=== PATIENT | male | born 1945 | race Caucasian/White ===

== ENCOUNTER 2017-02-26 06:04 | Inpatient (IN) | payer MEDICARE, OTHER ==
--- NOTE | 2017-02-21 08:43 | MH ---
cc: Danyell ORDAZ M.D. DATE OF ADMISSION: 02/26/2017 PREOPERATIVE DIAGNOSIS Osteoarthritic degeneration right hip now being admitted for right total hip arthroplasty. 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 PAST MEDICAL HISTORY Other past history: 1. He has a history of heart disease. 2. Essential primary hypertension. MEDICATIONS 1. Currently he is on warfarin which stopped 5 days before surgery. 2. He also takes aspirin 81 mg a day. 3. B complex vitamins. 4. Calcium acetate. 5. Flomax. 6. Losartan. 7. Metoprolol tartrate. PAST SURGICAL HISTORY Previous surgeries include: 1. A left total hip arthroplasty last year. 2. Cholecystectomy. 3. Knee replacement in the past. REVIEW OF SYSTEMS Noncontributory. FAMILY HISTORY Noncontributory. SOCIAL HISTORY He does drink alcohol and does smoke. ALLERGIES NO KNOWN ALLERGIES. PHYSICAL EXAMINATION GENERAL: We find a 71-year-old male well-developed, well-nourished, alert and oriented times three complaining of pain in his right hip. VITAL SIGNS: Blood pressure 132/74, pulse 78 and regular, respirations 16, temperature 97.9, pulse oximetry 98% on room air. HEENT: Eyes PERRLA, EOMI. Ears, nose, mouth clear. NECK: Supple. LUNGS: Clear. HEART: Regular rate. ABDOMEN: Soft. Positive bowel sounds, nontender. EXTREMITIES: Reveal his right hip to be tender with crepitance on range of motion. He is neurovascularly intact to his toes. IMPRESSION At this time is severe painful osteoarthritic degeneration right hip. PLAN The plan is admission for a right total hip arthroplasty today. 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 He is off his Coumadin and will need to have a stat Prothrombin time checked prior to surgery upon admission. He understands the procedure well and the risks involved. He was given a prescription for postoperative pain and anticoagulation control in the office. He understands to use the Hibiclens scrub and Bactroban preoperatively and plans on going home with home health care after surgical stay in the hospital. J. MD KAREN Raygoza/KK /3:18 PM /8:25 AM
[~2017-02-26] VITALS: Ht 177.8 cm; Wt 111.3 kg
[~2017-02-26 06:04] MED LIST: CALCTAB80 PO; CHOL10008 PO; IRON1CAP4 PO; LOSA25TA PO; METO25TA3 PO; MULT-65 PO; TAMS5CAP PO; VITA100021 SL; WARF-21 PO
[2017-02-26] MEDS ORDERED: LACTATED RINGER'S 1000 ML IV PRN (07:15)
[2017-02-26] MEDS ORDERED: METOPROLOL TARTRATE 25 MG TAB PO PRN (07:15)
[2017-02-26] MEDS ORDERED: CHLORHEXIDINE GLUCONATE 4% SOLN 120 ML BTL TOPICAL SCH (07:15)
[2017-02-26] MEDS ORDERED: ceFAZolin 2 GM PREMIX 50 ML IV SCH (07:15)
[2017-02-26] MEDS ORDERED: POVIDONE IODINE 5% (ANTISEPSIS KIT) 4 APPLICATIONS EACH NARE PRN (07:15)
[2017-02-26] MEDS ORDERED: CHLORHEXIDINE GLUCONATE 2 % 1 PACK (2 CLOTHS) TOPICAL PRN (07:15)
[2017-02-26] MEDS ORDERED: SODIUM CHLORID 0.9% 500 ML IV PRN (07:15)
[2017-02-26] MEDS ORDERED: VANCOMYCIN 1000 MG/NS 250 ML (for <70 kg) IV SCH ×2 (07:15)
[2017-02-26] MEDS ORDERED: ceFAZolin INJ 1,000 MG VIAL ONE (07:34)
[2017-02-26 08:13] LABS: BLOOD, URINE SMALL (NEG); GLUCOSE,URINE NEG (NEG); KETONE, URINE TRACE mg/dL (NEG); MUCUS URINE FEW /lpf (OCC); NITRITE,URINE NEG (NEG); PH, URINE 5.5 (5.0-8.5); SQUAMOUS EPITHELIAL CELL URINE 2 /hpf (0-5); URINE COLOR YELLOW (YELLW/STRAW); URINE LEUKOCYTE ESTERASE MOD (NEG)
[2017-02-26 08:15] LABS: INTERNATIONAL NORMALIZED RATIO 1.2 RATIO; PROTHROMBIN TIME - PATIENT 12.4 SEC (9.8-11.6)
[2017-02-26 08:19] LABS: BILIRUBIN, URINE NEG (NEG)
--- NOTE | 2017-02-26 08:25 | HHI.FF ---
Face to Face Verification Diagnosis: (1) Status post total replacement of right hip Physical Therapy Gait training Hip: Total hip, Protocol: Right, Posterior hip precautions, Abduction pillow while in bed, Progress to weight bearing Canvas Knee Splint: When in bed & 2 pillows btw thighs Nursing RN: 3 days/week x 2 weeks I have seen patient Garland Rosario on 02/26/17. My clinical findings support the need for the requested home health care services because: Limited ability to care for self High risk of falls I certify that my clinical findings support that this patient is homebound because: Unsteady gait/balance Danyell Funk MD Feb 26, 2017 08:25
[2017-02-26] MEDS ORDERED: ADJUSTABLE COMM1 MIS (08:26)
[2017-02-26] MEDS ORDERED: WALKER WHEELS/F1 MIS (08:26)
[2017-02-26] MEDS ORDERED: SODIUM CHLORIDE 0.9% IV SCH ×2 (08:30→11:30)
[2017-02-26] MEDS ORDERED: Post-op Orders (for Pharmacy) XX ONE (08:30)
[2017-02-26] MEDS ORDERED: BISACODYL 10 MG SUPP RECTAL PRN (08:30)
[2017-02-26] MEDS ORDERED: TRANEXAMIC ACID IV SCH ×2 (08:30→11:30)
[2017-02-26] MEDS ORDERED: MISCELLANEOUS NURSING INFORMATION XX PRN (08:30)
[2017-02-26] MEDS ORDERED: EXPAREL PERI-ARTICULAR INJECTION (TOTAL VOL. 120 ML) P-ARTICULR SCH ×2 (08:30)
[2017-02-26] MEDS ORDERED: NALOXONE HCL 0.4 MG/ML AMP IV PUSH PRN (08:30)
[2017-02-26] MEDS ORDERED: MAGNESIUM HYDROXIDE SUSP 30 ML CUP PO PRN (08:30)
[2017-02-26] MEDS ORDERED: TRANEXAMIC ACID INJ 0 MG in SODIUM CHLORIDE 0.9% INJ 100 ML IV SCH (08:30)
[2017-02-26] MEDS ORDERED: NON-FORMULARY DRUG (Multiple Vitamin (Multi-Vitamin Daily) 1 TAB) PO SCH (09:00)
[2017-02-26] MEDS ORDERED: APIXABAN 2.5 MG TABLET PO SCH (09:00)
[2017-02-26] MEDS ORDERED: ONDANSETRON HCL 4 MG/2 ML VIAL IVP PRN (09:45)
[2017-02-26] MEDS ORDERED: ACETAMINOPHEN 325 MG TAB PO PRN (09:45)
[2017-02-26] MEDS ORDERED: ACETAMINOPHEN/HYDROcodone 325 MG/7.5 MG TAB PO PRN (09:45)
[2017-02-26] MEDS: CYANOCOBALAMIN 1,000 MCG TAB PO SCH (10:00)
[2017-02-26] MEDS: CHOLECALCIFEROL (VIT D3) 1000 UNIT TAB PO SCH (10:00)
[2017-02-26] MEDS ORDERED: DO NOT ADM ANY ANTICOAGULANT DRUGS PRN (11:30)
[2017-02-26] MEDS ORDERED: *morphine SULFATE 8 MG/ML PERIprocedure ONLY ONE (11:55)
--- NOTE | 2017-02-26 11:58 | HHI.PR ---
Immediate Post Op Note Procedure Date: Feb 26, 2017 Pre Op Diagnosis: Degenerative Joint Disease Right Hip Post Op Diagnosis: Same Surgeon: Danyell Funk MD Tinner Automatic(s): CANDIDO Barbour Procedure: Right Total Hip Arthroplasty; Posterior Approach Findings: Degenerative Joint Disease Right Hip Complications: None Estimated blood loss: 1000cc Anesthesia: General Drains: None IVF (2000cc ) Tourniquet time (min at mmHg) N/A Patient to: PACU Patient Condition: Good Implant/Devices: SEE IMPLANT LOG (if applicable) (1.) Aesculap 54mm Acetabular Cup. 2.) Aesculap 54mm/ 36mm Insert . 3.) Aesculap #17 Stem. 4.) Aesculap 36mm Ceramic Head. ) Date/Time of Procedure: SEE SURGICAL CARE RECORD Garland Coombs Feb 26, 2017 11:58
[2017-02-26] MEDS: LACTATED RINGER'S 1000 ML INJ 1,000 ML IV SCH ×2 (12:00→21:33)
[2017-02-26] MEDS ORDERED: ePHEDrine/NS 25 MG/5 ML SYRINGE IV ONE (12:00)
[2017-02-26] MEDS ORDERED: PROPOFOL 200 MG/20 ML AMP IV ONE (12:00)
[2017-02-26] MEDS ORDERED: LIDOCAINE HCL 1% PF 5 ML SYRINGE OTHER ONE (12:00)
--- NOTE | 2017-02-26 12:18 | RADRPT ---
EXAM DATE/TIME: 02/26/2017 11:50 [place] COMPARISON: No previous studies available for comparison. INDICATIONS : Post-op right hip. MEDICAL HISTORY : None. SURGICAL HISTORY : None. ENCOUNTER: Initial ACUITY: 1 day PAIN SCORE: 8/10 LOCATION: Right Hip. FINDINGS: View of the right hip was obtained. Postop right total hip replacement. Air in soft tissues. Normal a lignment on single view. CONCLUSION: 1. Postop right hip replacement with normal alignment on AP view. Jason Lux MD on February 26, 2017 at 12:15 Board Certified Radiologist. This report was verified electronically.
--- NOTE | 2017-02-26 12:22 | PD.CONS ---
[facility] By [facility] surgery Reason for Consult Medical management Primary Care Physician Unknown Diagnoses: History of Present Illness 71-year-old man with a history of hypertension, CAD, right severe OA of the Hip would despite medical management including physical therapy,NSAIDs and corticosteroid injection continued to have severe right hip pain affecting daily living of Activity including ambulation, was taken to the operating room today and underwent right total hip arthroplasty. Patient was seen postoperatively in PACU. He Has no complaint of chest pain or shortness of breath. Review of Systems Except as stated in HPI: all other systems reviewed are Neg Past Family Social History Allergies: Coded Allergies: No Known Allergies (Unverified , 02/26/17) Past Medical History Right hip osteoarthritis Hypertension Atrial fibrillation BPH CAD Past Surgical History Right total hip arthroplasty 02/26/17 A left total hip arthroplasty last year. Cholecystectomy. Knee replacement in the past. Reported Medications 1. Currently he is on warfarin which stopped 5 days before surgery. 2. He also takes aspirin 81 mg a day. 3. B complex vitamins. 4. Calcium acetate. 5. Flomax. 6. Losartan. 7. Metoprolol tartrate. Family History Noncontributory Social History History of tobacco and alcohol use Physical Exam Vital Signs Vital Signs Date Time Temp Pulse Resp B/P (MAP) Pulse Ox O2 Delivery O2 Flow Rate FiO2 02/26/17 07:57 97.5 68 20 116/71 (86) 97 Physical Exam GENERAL: This is a well-nourished, well-developed patient, in no apparent distress. SKIN: No rashes, ecchymoses or lesions. Cool and dry. HEAD: Atraumatic. Normocephalic. No temporal or scalp tenderness. EYES: Pupils equal round and reactive. Extraocular motions intact. No scleral icterus. No injection or drainage. ENT: Nose without bleeding, purulent drainage or septal hematoma. Throat without erythema, tonsillar hypertrophy or exudate. Uvula midline. Airway patent. NECK: Trachea midline. No JVD or lymphadenopathy. Supple, nontender, no meningeal signs. CARDIOVASCULAR: Irregular Regular rate and rhythm without murmurs, gallops, or rubs. RESPIRATORY: Clear to auscultation. Breath sounds equal bilaterally. No wheezes , rales, or rhonchi. GASTROINTESTINAL: Abdomen soft, non-tender, nondistended. No hepato-splenomegaly , or palpable masses. No guarding. MUSCULOSKELETAL: Extremities without clubbing, cyanosis, or edema. Right hip repair-neurovascular intact NEUROLOGICAL: Awake and alert. Cranial nerves II through XII intact. Motor and sensory grossly within normal limits. Five out of 5 muscle strength in all muscle groups. Normal speech. Laboratory Laboratory Tests Test 02/26/17 07:30 02/26/17 07:50 Urine Color YELLOW Urine Turbidity CLEAR Urine pH 5.5 Urine Specific Vader 1.028 Urine Protein TRACE Urine Glucose (UA) NEG Urine Ketones TRACE Urine Occult Blood SMALL Urine Nitrite NEG Urine Bilirubin NEG Urine Urobilinogen 4.0 Urine Leukocyte Esterase MOD Urine RBC 1 Urine WBC 5 Urine Squamous Epithelial Cells 2 Urine Mucus FEW Microscopic Urinalysis Comment CULT NOT INDICATED Prothrombin Time 12.4 Prothromb Time International Ratio 1.2 Activated Partial Thromboplast Time 28.3 Imaging Last Impressions Hip X-Ray 02/26/17820 Signed Impressions: Service Date/Time: Sunday, February 26, 2017 11:50 - CONCLUSION: 1. Postop right hip replacement with normal alignment on AP view. Jason Lux MD Assessment and Plan Assessment and Plan 71-year-old man with Right hip severe osteoarthritis s/p Right Total Hip Arthroplasty 02/26/17 Management per orthopedic surgery Continue current postop care PT consult to treat and eval Ivy for DVT prophylaxis History of atrial fibrillation Continue with Lopressor Coumadin on hold Currently on Eliquis Hypertension Continue Cozaar 25 mg daily, Lopressor 25 mg twice a day BPH Continue with Flomax Alcohol abuse Start CIWA protocol DVT prophylaxis: Eliquis Thank you for this consultation Code Status Full code Discussed Condition With Patient, Janie CARVER PACU nurse Eduard Aguirre MD Feb 26, 2017 12:22
[2017-02-26 12:31] LABS: HEMATOCRIT 39.6 % (39.0-51.0); HEMOGLOBIN 13.5 GM/DL (13.0-17.0)
[2017-02-26] MEDS ORDERED: LORazepam 2 MG/ML VIAL IV PUSH PRN ×4 (13:00)
[2017-02-26] MEDS ORDERED: LORazepam 2 MG TAB PO PRN (13:00)
[2017-02-26] MEDS ORDERED: RESP: ALBUTEROL 2.5 MG/IPRATROPIUM 0.5 MG NEB (PRN) NEB (13:00)
[2017-02-26] MEDS ORDERED: LORazepam 1 MG TAB PO PRN (13:00)
[2017-02-26] MEDS ORDERED: FLUMAZENIL 0.5 MG/5 ML VIAL IV PUSH PRN (13:00)
--- NOTE | 2017-02-26 14:12 | EKG ---
Date Performed: 02/26/2017 Time Performed: 07:00:17 PTAGE: 71 years EKG: Sinus rhythm WITH SINUS ARRHYTHMIA WITH FIRST DEGREE AV BLOCK BORDERLINE LEFT AXIS DEVIATION RIGHT BUNDLE BRANCH BLOCK ABNORMAL ECG NO PREVIOUS TRACING DOCTOR: Rowdy Negron Interpretating Date/Time 02/26/2017 14:11:27
[2017-02-26 19:07] VITALS: BP 140/72; PULSE 83; RESP 18; TEMP 96.7; O2SAT 99
[2017-02-26] MEDS ORDERED: TEMAZEPAM 15 MG CAP PO PRN (21:00)
[2017-02-26] MEDS: TAMSULOSIN HCL 0.4 MG CAP PO SCH (21:32)
[2017-02-26] MEDS: METOPROLOL TARTRATE 25 MG TAB PO SCH (21:32)
--- NOTE | 2017-02-26 22:46 | RC ---
cc: JAIR DIXON MD,Danyell REYES M.D. DATE OF SERVICE: 02/26/[address] Adrien Funk DIAGNOSIS Severe osteoarthritis and osteoarthritic degeneration of the right hip. CHIEF COMPLAINT Status post right total hip arthroplasty. REASON FOR VISIT The patient is being evaluated for adjuvant postoperative radiotherapy for HO prevention. HISTORY OF PRESENT ILLNESS A 71-year-old white male with the diagnosis of osteoarthritic degeneration of the right hip. The patient has had severe painful osteoarthritic degeneration and underwent right total hip arthroplasty today. Due to this Dr. Funk recommended for the patient to consider adjuvant postoperative radiation therapy for HO prevention. The patient has been referred to me and consult has been requested for discussion of adjuvant radiation therapy. PAST MEDICAL HISTORY As above. 1. Heart disease. 2. Hypertension. 3. Left total hip replacement. 4. Cholecystectomy. 5. Knee replacement in the past. 6. Angina. 7. History of cardiac stents. 8. History of enlarged prostate. MEDICATIONS 1. Colace. 2. Cozaar. 3. Theragran. 4. Lopressor. 5. Flomax. 6. Restoril. 7. Romazicon. 8. Ativan. 9. [place]. 10. Zofran. 11. Narcan. ALLERGIES NO KNOWN DRUG ALLERGIES. FAMILY HISTORY No carcinoma in the family. SOCIAL HISTORY The patient admits to smoking. He denies ETOH intake. REVIEW OF SYSTEMS Constitutional: The patient denies any decrease or loss of appetite. ALLERGIES: None known. Eyes: Wears glasses. ENT: Denies any difficulty in swallowing. Neck: Unremarkable. Integumentary unremarkable. Cardiovascular: Denies any chest pain, clinical signs of [place]. Respiratory: Unremarkable. Denies hemoptysis or cough. Gastrointestinal: Unremarkable. Genitourinary: Unremarkable. Musculoskeletal: Right hip discomfort following surgery. Neurological: Unremarkable. Denies any clinical signs of stroke. Psychiatric: Unremarkable. Hematologic: Unremarkable. Dermatologic: Unremarkable. PHYSICAL EXAMINATION Vital signs: Pulse 82, respiratory rate 16, blood pressure 130/63, pulse ox 100% on room air. Lungs: Clear to auscultation with upper respiratory effort. Heart: Irregularly irregular, no murmurs. Neck: Palpation of neck and bilateral supraclavicular are free. Abdomen: Palpation of abdominal cavity, there is no hepatosplenomegaly. No pain elicited. No lymph nodes detected. Extremities: No lower extremity edema detected. There is surgical site on the right hip. There is no infection or discharge detected. No bleeding. Neurological: Cognitive functions preserved, motor function preserved. Skin: No rash. No other positive findings. RADIOLOGY Hip AP only right pelvis on 02/26/2017. Postop right hip replacement, normal alignment on AP view. This was independently reviewed by me. ASSESSMENT A 71 year-old white male with diagnosis of severe osteoarthritic disease of the right hip, status post total hip replacement. The patient is being evaluated for radiation therapy for prevention of heterotopic bone. PLAN I had an extensive discussion with the patient in regards to his condition. I discussed the merits of radiation therapy and alternatives including indomethacin use. I discussed the purpose of the radiation therapy which will be HO prevention. I discussed the side effects, complications of radiotherapy to include but not limited to weakness, fatigue, blood counts, necrosis of the skin, wound dehiscence, failure of the implant, diarrhea, nausea and vomiting, decrease in sperm counts, swelling of the treated area, erythema of the skin. After a thorough discussion the patient wanted to move forward with treatment. Our plans are to simulate and treat within 72 hours of the surgery most likely on . The patient advised if I could be of any further assistance to please let me know otherwise we will proceed as above. All his questions were answered. Dr. Funk, thank you very much for placing this consult and allowing me to participate in the care of your patient. Should you have any further concerns, please do not hesitate to contact me. Jair Dixon MD Radiation Oncologist LYNDA ROJAS/BLANCA /5:25 PM /10:15 PM [place]
[2017-02-26] MEDS: APIXABAN 2.5 MG TABLET PO SCH (22:56)
[2017-02-26 23:13] VITALS: BP 122/69; PULSE 92; RESP 18; TEMP 99.6; O2SAT 96
[2017-02-27] VITALS (8 sets, daily range): BP systolic 78–133; BP diastolic 38–65; PULSE 79–88; RESP 17–19; TEMP 97.7–99.4; O2SAT 92–99
[2017-02-27 04:39] LABS: HEMOGLOBIN 11.9 GM/DL (13.0-17.0)
[2017-02-27 04:54] LABS: BICARBONATE 28.4 MEQ/L (21.0-32.0); CREATININE 0.77 MG/DL (0.60-1.30)
--- NOTE | 2017-02-27 07:57 | PD.ORT.PN ---
Subjective Subjective Remarks Pt painful at present. Objective Vitals Vital Signs Date Time Temp Pulse Resp B/P (MAP) Pulse Ox O2 Delivery O2 Flow Rate FiO2 02/27/17 03:12 98.3 86 18 88/48 (61) 98 02/26/17 23:13 99.6 92 18 122/69 (86) 96 02/26/17 19:07 96.7 83 18 140/72 (94) 99 02/26/17 18:15 97.9 82 18 168/70 (102) 100 Room Air 02/26/17 17:00 76 18 100 Room Air 02/26/17 16:00 71 18 148/70 (96) 100 Room Air 02/26/17 15:00 77 18 132/67 (88) 100 Room Air 02/26/17 14:00 82 16 130/63 (85) 100 Room Air 02/26/17 13:50 72 16 147/71 (96) 100 Nasal Cannula 2 02/26/17 13:30 75 16 150/67 (94) 100 Nasal Cannula 2 02/26/17 13:00 72 16 132/66 (88) 100 Nasal Cannula 2 02/26/17 12:45 69 16 136/65 (88) 100 Nasal Cannula 2 02/26/17 12:30 69 16 157/72 (100) 100 Nasal Cannula 2 02/26/17 12:15 77 17 155/77 (103) 100 Nasal Cannula 2 02/26/17 12:00 78 17 150/67 (94) 100 Nasal Cannula 2 02/26/17 11:45 80 17 144/94 (111) 100 Nasal Cannula 2 02/26/17 11:40 97.7 84 17 156/82 (106) 100 Nasal Cannula 2 02/26/17 07:57 97.5 68 20 116/71 (86) 97 I/O 02/26/17 02/26/17 02/26/17 02/27/17 02/27/17 02/27/17 06:59 14:59 22:59 06:59 14:59 22:59 Intake Total 2413 ml 440 ml 2200 ml Output Total 4080 ml 140 ml 1000 ml Balance -1667 ml 300 ml 1200 ml Intake Oral 300 ml 240 ml 480 ml IV Total 2113 ml 200 ml 1720 ml Output Urine Total 80 ml 140 ml 1000 ml Estimated Blood Loss 1000 ml Other 3000 ml Bladder Scan Volume Amount 886 ml # Voids 1 0 # Bowel Movements 0 0 Result Diagram: 02/27/1742602/27/177 Imaging Last 24 hours Impressions Hip X-Ray 02/26/17820 Signed Impressions: Service Date/Time: Sunday, February 26, 2017 11:50 - CONCLUSION: 1. Postop right hip replacement with normal alignment on AP view. Jason Lux MD Objective Remarks In bed at present. Has Gonzalez. NV intact to toes. No calf tenderness. Assessment & Plan Ortho Post Op Day #: 1 Problem List: Assessment and Plan OOB, PT, gonzalez per medical management. Danyell Funk MD Feb 27, 2017 07:57
[2017-02-27] MEDS: METOPROLOL TARTRATE 25 MG TAB PO SCH ×2 (09:00→21:37)
[2017-02-27] MEDS: LOSARTAN 25 MG TAB PO SCH (09:00)
[2017-02-27] MEDS: APIXABAN 2.5 MG TABLET PO SCH ×2 (10:17→21:37)
[2017-02-27] MEDS: CYANOCOBALAMIN 1,000 MCG TAB PO SCH (10:18)
[2017-02-27] MEDS: CHOLECALCIFEROL (VIT D3) 1000 UNIT TAB PO SCH (10:18)
[2017-02-27] MEDS: MULTIVITAMINS/MINERALS THERAPEUTIC TAB PO SCH ×2 (10:18→21:37)
[2017-02-27] MEDS: CALCIUM/VITAMIN D 250 MG/125 U TAB PO SCH (10:18)
[2017-02-27] MEDS: LACTATED RINGER'S 1000 ML INJ 1,000 ML IV SCH ×2 (10:45→22:21)
[2017-02-27] MEDS ORDERED: SODIUM CHLOR 0.9% 1000 ML INJ 1,000 ML IV ONE (12:15)
[2017-02-27] MEDS: NICOTINE 21 MG/24 HR PATCH T-DERMAL SCH (13:15)
--- NOTE | 2017-02-27 13:18 | HHI.PR ---
Subjective Remarks Follow-up s/p Right Total Hip Arthroplasty 02/26/17 Patient seen and examined Currently With low BP and asymptomatic however denies any GI bleed Objective Vitals Vital Signs Date Time Temp Pulse Resp B/P (MAP) Pulse Ox O2 Delivery O2 Flow Rate FiO2 02/27/17 12:00 99.4 85 19 78/38 (51) 98 02/27/17 11:48 92 02/27/17 08:00 98.2 79 17 96/53 (67) 92 02/27/17 03:12 98.3 86 18 88/48 (61) 98 02/26/17 23:13 99.6 92 18 122/69 (86) 96 02/26/17 19:07 96.7 83 18 140/72 (94) 99 02/26/17 18:15 97.9 82 18 168/70 (102) 100 Room Air 02/26/17 17:00 76 18 100 Room Air 02/26/17 16:00 71 18 148/70 (96) 100 Room Air 02/26/17 15:00 77 18 132/67 (88) 100 Room Air 02/26/17 14:00 82 16 130/63 (85) 100 Room Air 02/26/17 13:50 72 16 147/71 (96) 100 Nasal Cannula 2 02/26/17 13:30 75 16 150/67 (94) 100 Nasal Cannula 2 I/O 02/26/17 02/26/17 02/26/17 02/27/17 02/27/17 02/27/17 06:59 14:59 22:59 06:59 14:59 22:59 Intake Total 2413 ml 440 ml 2200 ml Output Total 4080 ml 140 ml 1000 ml Balance -1667 ml 300 ml 1200 ml Intake Oral 300 ml 240 ml 480 ml IV Total 2113 ml 200 ml 1720 ml Output Urine Total 80 ml 140 ml 1000 ml Estimated Blood Loss 1000 ml Other 3000 ml Bladder Scan Volume Amount 886 ml # Voids 1 0 # Bowel Movements 0 0 Result Diagram: 02/27/1742602/27/17426 Imaging Last Impressions Hip X-Ray 02/26/17 0821 Signed Impressions: Service Date/Time: Sunday, February 26, 2017 11:50 - CONCLUSION: 1. Postop right hip replacement with normal alignment on AP view. Jason Lux MD Objective Remarks GENERAL: NAD SKIN: Warm and dry. HEAD: Normocephalic. EYES: No scleral icterus. No injection or drainage. NECK: Supple, trachea midline. No JVD or lymphadenopathy. CARDIOVASCULAR: Regular rate and rhythm without murmurs, gallops, or rubs. RESPIRATORY: Breath sounds equal bilaterally. No accessory muscle use. GASTROINTESTINAL: Abdomen soft, non-tender, nondistended. MUSCULOSKELETAL: No cyanosis, or edema. Right hip repair-neurovascular intact BACK: Nontender without obvious deformity. No CVA tenderness. A/P Assessment and Plan 71-year-old man with Right hip severe osteoarthritis s/p Right Total Hip Arthroplasty 02/26/17 Management per orthopedic surgery Continue current postop care PT to treat and eval Eliquis for DVT prophylaxis History of atrial fibrillation Continue with Lopressor Coumadin on hold Currently on Eliquis Hypertension Continue Cozaar 25 mg daily, Lopressor 25 mg twice a day; however will hold d /t low BP Hypotension H/H stable right now Will give 1L NS bolus x 1 now Hold BP meds accordingly BPH Continue with Flomax Alcohol abuse Continue CIWA protocol, rally pack Tobacco abuse Tobacco counselling provided Nicotine patch Elevated blood glucose Check hemoglobin A1c DVT prophylaxis: Eduard Sanderson MD Feb 27, 2017 13:18
[2017-02-27 15:39] LABS: BACTERIA, URINE RARE /hpf; BILIRUBIN, URINE NEG (NEG); BLOOD, URINE LARGE (NEG); GLUCOSE,URINE NEG (NEG); KETONE, URINE NEG (NEG); MUCUS URINE FEW /lpf (OCC); NITRITE,URINE NEG (NEG); PH, URINE 5.5 (5.0-8.5); URINE COLOR YELLOW (YELLW/STRAW); URINE LEUKOCYTE ESTERASE SMALL (NEG)
[2017-02-27] MEDS: ACETAMINOPHEN/HYDROcodone 325 MG/7.5 MG TAB PO PRN ×2 (18:05→22:20)
[2017-02-27] MEDS ORDERED: REMOVE OLD PATCH T-DERMAL SCH (21:00)
[2017-02-27] MEDS: DOCUSATE SODIUM 100 MG CAP PO SCH (21:37)
[2017-02-27] MEDS: TAMSULOSIN HCL 0.4 MG CAP PO SCH (21:37)
[2017-02-28 00:10] VITALS: BP 109/47; PULSE 82; RESP 18; TEMP 97; O2SAT 95
[2017-02-28 04:40] VITALS: BP 121/69; PULSE 97; RESP 18; TEMP 97.5; O2SAT 97
[2017-02-28] MEDS: ACETAMINOPHEN/HYDROcodone 325 MG/7.5 MG TAB PO PRN ×4 (04:49→17:03)
[2017-02-28 07:00] LABS: HEMATOCRIT 28.6 % (39.0-51.0)
[2017-02-28 08:00] VITALS: BP 110/49; PULSE 84; RESP 18; TEMP 97.7; O2SAT 95
--- NOTE | 2017-02-28 08:39 | PD.ORT.PN ---
Subjective Subjective Remarks Pt comfortable at present. Objective Vitals Vital Signs Date Time Temp Pulse Resp B/P (MAP) Pulse Ox O2 Delivery O2 Flow Rate FiO2 02/28/17 08:00 97.7 84 18 110/49 (69) 95 02/28/17 04:40 97.5 97 18 121/69 (86) 97 02/28/17 00:10 97.0 82 18 109/47 (67) 95 02/27/17 21:00 97.9 88 18 133/65 (87) 97 02/27/17 17:39 99 21 02/27/17 16:00 97.7 84 17 133/62 (85) 99 02/27/17 14:00 97/46 (63) 02/27/17 12:00 99.4 85 19 78/38 (51) 98 02/27/17 11:48 92 I/O 02/27/17 02/27/17 02/27/17 02/28/17 02/28/17 02/28/17 07:00 15:00 23:00 07:00 15:00 23:00 Intake Total 2200 ml 1200 ml 1779 ml 240 ml Output Total 1000 ml 1450 ml 350 ml Balance 1200 ml -250 ml 1779 ml -110 ml Intake Oral 480 ml 1200 ml 240 ml IV Total 1720 ml 1779 ml Output Urine Total 1000 ml 1450 ml 350 ml Bladder Scan Volume Amount 886 ml # Bowel Movements 0 0 0 Result Diagram: 02/28/17 0557 02/27/17 0427 Imaging Last 24 hours Impressions Hip X-Ray 02/26/17 0821 Signed Impressions: Service Date/Time: Sunday, February 26, 2017 11:50 - CONCLUSION: 1. Postop right hip replacement with normal alignment on AP view. Jason Lux MD Objective Remarks In bed at present. Has Gonzalez. NV intact to toes. No calf tenderness. Assessment & Plan Ortho Post Op Day #: 2 Problem List: Assessment and Plan OOB, PT, gonzalez per medical management. Home later today after physical therapy. Follow-up in the office for recheck. Danyell Funk MD Feb 28, 2017 08:39
--- NOTE | 2017-02-28 08:42 | HHI.DS ---
Discharge Summary Admission Date Feb 26, 2017 at 06:04 Discharge Date: Feb 28, 2017 Admitting Diagnosis Osteoarthritic degeneration right hip. Diagnosis: (1) Status post total replacement of right hip Diagnosis: Principal ICD Codes: Z96.641 - Presence of right artificial hip joint Brief History This is a 71 year old male patient CBC/BMP: 02/28/17 0557 02/27/17 0427 Significant Findings Laboratory Tests Test 02/26/17 07:30 02/26/17 07:50 02/26/17 12:20 02/27/17 04:27 Urine Ketones TRACE mg/dL (NEG) Urine Occult Blood SMALL (NEG) Urine Urobilinogen 4.0 MG/DL (LESS THAN Urine Leukocyte Esterase MOD (NEG) Urine Mucus FEW /lpf (OCC) Prothrombin Time 12.4 SEC (9.8-11.6) Hemoglobin 11.9 GM/DL (13.0-17.0) Hematocrit 34.0 % (39.0-51.0) Random Glucose 139 MG/DL (74-106) Calcium Level 8.0 MG/DL (8.5-10.1) Test 02/27/17 14:50 02/28/17 05:57 Urine Turbidity HAZY (CLEAR) Urine Occult Blood LARGE (NEG) Urine Leukocyte Esterase SMALL (NEG) Urine RBC 53 /hpf (0-3) Urine WBC 8 /hpf (0-5) Urine Bacteria RARE /hpf (NONE) Urine Mucus FEW /lpf (OCC) Hemoglobin 10.0 GM/DL (13.0-17.0) Hematocrit 28.6 % (39.0-51.0) PE at Discharge In bed at present. Has [place]. NV intact to toes. No calf tenderness. Hospital Course Patient underwent a right total hip arthroplasty on day of admission. He received a course of prophylactic IV antibiotics and within 23 hours started on anticoagulation therapy. He received medical management who had a Caballero inserted for problems with voiding. He remained afebrile vital signs stable and continued to improve. He tolerated food and fluid well and by mouth pain meds. He was discharged on second postoperative day after being able to void without a Caballero. He was discharged in good condition with instructions for home healthcare and physical therapy and follow-up appointment in the office for recheck. Pt Condition on Discharge: Good Discharge Disposition: Disch w/ Home Health Serv Discharge Instructions Diet Instructions: As Tolerated, No Restrictions Activities You Can Perform: Full Weight Bearing, Shower Only-No Bath Activities to Avoid: Bathing, Driving Danyell Funk MD Feb 28, 2017 08:42
[2017-02-28] MEDS: CALCIUM/VITAMIN D 250 MG/125 U TAB PO SCH (08:56)
[2017-02-28] MEDS: DOCUSATE SODIUM 100 MG CAP PO SCH (08:56)
[2017-02-28] MEDS: APIXABAN 2.5 MG TABLET PO SCH (08:56)
[2017-02-28] MEDS: METOPROLOL TARTRATE 25 MG TAB PO SCH (08:57)
[2017-02-28] MEDS: CHOLECALCIFEROL (VIT D3) 1000 UNIT TAB PO SCH (08:57)
[2017-02-28] MEDS: CYANOCOBALAMIN 1,000 MCG TAB PO SCH (08:57)
[2017-02-28] MEDS: NICOTINE 21 MG/24 HR PATCH T-DERMAL SCH (08:57)
[2017-02-28] MEDS: MULTIVITAMINS/MINERALS THERAPEUTIC TAB PO SCH ×2 (08:57)
[2017-02-28] MEDS: LOSARTAN 25 MG TAB PO SCH (08:58)
[2017-02-28 10:17] VITALS: O2SAT 95
[2017-02-28 11:16] LABS: HEMOGLOBIN A1C 4.6 % (4.3-6.0)
[2017-02-28] MEDS: LACTATED RINGER'S 1000 ML INJ 1,000 ML IV SCH (11:45)
[2017-02-28 12:00] VITALS: BP 115/50; PULSE 84; RESP 17; TEMP 97.6; O2SAT 95
--- NOTE | 2017-02-28 14:04 | HHI.PR ---
Subjective Remarks CLEARED BY ORTHO AFTER HAVING RADIATION LATER TODAY DW RN AND PATIENT No new complaints wants to go as soon as possible Objective Vitals Vital Signs Date Time Temp Pulse Resp B/P (MAP) Pulse Ox O2 Delivery O2 Flow Rate FiO2 02/28/17 10:17 95 02/28/17 08:00 97.7 84 18 110/49 (69) 95 02/28/17 04:40 97.5 97 18 121/69 (86) 97 02/28/17 00:10 97.0 82 18 109/47 (67) 95 02/27/17 21:00 97.9 88 18 133/65 (87) 97 02/27/17 17:39 99 21 02/27/17 16:00 97.7 84 17 133/62 (85) 99 I/O 02/27/17 02/27/17 02/27/17 02/28/17 02/28/17 02/28/17 07:00 15:00 23:00 07:00 15:00 23:00 Intake Total 2200 ml 1200 ml 1779 ml 240 ml Output Total 1000 ml 1450 ml 350 ml Balance 1200 ml -250 ml 1779 ml -110 ml Intake Oral 480 ml 1200 ml 240 ml IV Total 1720 ml 1779 ml Output Urine Total 1000 ml 1450 ml 350 ml Bladder Scan Volume Amount 886 ml # Bowel Movements 0 0 0 Result Diagram: 02/28/17 0557 02/27/17 0427 Other Results Laboratory Tests Test 02/26/17 07:30 02/26/17 07:50 02/26/17 12:20 02/27/17 04:27 Urine Color YELLOW Urine Turbidity CLEAR Urine pH 5.5 Urine Specific Gillespie 1.028 Urine Protein TRACE mg/dL Urine Glucose (UA) NEG mg/dL Urine Ketones TRACE mg/dL Urine Occult Blood SMALL Urine Nitrite NEG Urine Bilirubin NEG Urine Urobilinogen 4.0 MG/DL Urine Leukocyte Esterase MOD Urine RBC 1 /hpf Urine WBC 5 /hpf Urine Squamous Epithelial Cells 2 /hpf Urine Mucus FEW /lpf Microscopic Urinalysis Comment CULT NOT INDICATED Prothrombin Time 12.4 SEC Prothromb Time International Ratio 1.2 RATIO Activated Partial Thromboplast Time 28.3 SEC Hemoglobin 13.5 GM/DL 11.9 GM/DL Hematocrit 39.6 % 34.0 % Blood Urea Nitrogen 17 MG/DL Creatinine 0.77 MG/DL Random Glucose 139 MG/DL Calcium Level 8.0 MG/DL Sodium Level 138 MEQ/L Potassium Level 4.0 MEQ/L Chloride Level 103 MEQ/L Carbon Dioxide Level 28.4 MEQ/L Anion Gap 7 MEQ/L Estimat Glomerular Filtration Rate 99 ML/MIN Test 02/27/17 14:50 02/28/17 05:57 Urine Color YELLOW Urine Turbidity HAZY Urine pH 5.5 Urine Specific Gillespie 1.023 Urine Protein TRACE mg/dL Urine Glucose (UA) NEG mg/dL Urine Ketones NEG mg/dL Urine Occult Blood LARGE Urine Nitrite NEG Urine Bilirubin NEG Urine Urobilinogen 2.0 MG/DL Urine Leukocyte Esterase SMALL Urine RBC 53 /hpf Urine WBC 8 /hpf Urine Bacteria RARE /hpf Urine Mucus FEW /lpf Microscopic Urinalysis Comment CULT NOT INDICATED Hemoglobin 10.0 GM/DL Hematocrit 28.6 % Hemoglobin A1c 4.6 % Imaging Last Impressions Hip X-Ray 02/26/17 0821 Signed Impressions: Service Date/Time: Sunday, February 26, 2017 11:50 - CONCLUSION: 1. Postop right hip replacement with normal alignment on AP view. Jason Lux MD Objective Remarks GENERAL: AWAKE ALERT AND ORIENTED X3 SKIN: Warm and dry. HEAD: Atraumatic. Normocephalic. EYES: Pupils equal and round. No scleral icterus. No injection or drainage. EOMI ENT: No nasal bleeding or discharge. Mucous membranes pink and moist. Tongue is midline NECK: Trachea midline. No JVD. Supple CARDIOVASCULAR: IRRegular rate and rhythm. S1-S2 no S3 or S4 RESPIRATORY: No accessory muscle use. Clear to auscultation. Breath sounds equal bilaterally. GASTROINTESTINAL: Abdomen soft, non-tender, nondistended. Hepatic and splenic margins not palpable. MUSCULOSKELETAL: Extremities without clubbing, cyanosis, or edema. No obvious deformities. NEUROLOGICAL: Awake and alert. No obvious cranial nerve deficits. Motor grossly within normal limits. 4 out of 5 muscle strength in the arms and legs. Normal speech. PSYCHIATRIC: Appropriate mood and affect; insight and judgment normal. Procedures s/p Right Total Hip Arthroplasty 02/26/17 Medications and IVs Current Medications Chlorhexidine Gluconate (Hibiclens 4% Top Soln) 1 applic ONCE TOPICAL ; Start at 07:15; Stop 03/01/17 at 07:14 Cefazolin Sodium/ Dextrose 50 ml @ 100 mls/hr [employer] IV Last administered on 02/26/17at 09:13; Start 02/26/17 at 07:15; Stop 03/01/17 at 07:14 Vancomycin HCl 1000 mg/Sodium Chloride 250 ml @ 250 mls/hr [employer] IV Last administered on 02/26/17at 08:02; Start 02/26/17 at 07:15; Stop 03/01/17 at 07:14 Tranexamic Acid 1113 mg/Sodium Chloride 111.13 ml @ 200 mls/ hr ONCE IV Last administered on 02/26/17at 09:13; Start 02/26/17 at 08:30; Stop 02/27/17 at 14:30; Status DC Tranexamic Acid 1113 mg/Sodium Chloride 111.13 ml @ 200 mls/ hr ONCE IV Last administered on 02/26/17at 12:23; Start 02/26/17 at 11:30; Stop 02/26/17 at 12:30; Status DC Lactated Ringer's 1,000 ml @ 30 mls/hr Q24H PRN IV SEE LABEL COMMENTS Last administered on 02/26/17at 07:45; Start 02/26/17 at 07:15; Stop 03/01/17 at 07:14 Sodium Chloride 500 ml @ 30 mls/hr [id number] PRN IV SEE LABEL COMMENTS; Start 02/26/17 at 07:15; Stop 03/01/17 at 07:14 Metoprolol Tartrate (Lopressor) 25 mg [employer] PRN PO SEE LABEL COMMENTS; Start 02/26/17 at 07:15; Stop 03/01/17 at 07:14 Povidone Iodine (Betadine 5% Antisepsis Kit) 1 applic [employer] PRN EACH NARE SEE LABEL COMMENTS Last administered on 02/26/17at 07:45; Start 02/26/17 at 07:15; Stop 03/01/17 at 07:14 Chlorhexidine Gluconate (Chlorhexidine 2% Cloth) 3 pack [employer] PRN TOPICAL SEE LABEL COMMENTS Last administered on 02/26/17at 06:30; Start 02/26/17 at 07:15; Stop 03/01/17 at 07:14 Bupivacaine Liposome 20 ml/ Sodium Chloride 120 ml @ 240 mls/hr ONCE P- ARTICULR Last administered on 02/26/17at 10:35; Start 02/26/17 at 08:30; Stop 02/26 at 14:30; Status DC Cefazolin Sodium (Ancef Inj) 2,000 mg STK-MED ONCE .ROUTE Last administered on 02/26/17at 09:10; Start 02/26/17 at 07:34; Stop 02/26/17 at 07:35; Status DC Cholecalciferol (Vitamin D3) 1,000 units DAILY PO Last administered on at 08:57; Start 02/26/17 at 10:00 Cyanocobalamin (Vitamin B12) 1,000 mcg DAILY PO Last administered on 02/28/17at 08:57; Start 02/26/17 at 10:00 Losartan Potassium (Cozaar) 25 mg DAILY PO ; Start 02/27/17 at 09:00 Metoprolol Tartrate (Lopressor) 25 mg BID PO Last administered on 02/26/17at 21: 32; Start 02/26/17 at 21:00 Tamsulosin HCl (Flomax) 0.8 mg HS PO Last administered on 02/27/17at 21:37; Start 02/26/17 at 21:00 Calcium/Vitamin D (Oscal-D 250-125) 2 mg DAILY PO Last administered on at 08:56; Start 02/27/17 at 09:00 Multivitamins/ Minerals Therapeutic (Theragran M Tab) 1 tab DAILY PO Last administered on 02/28/17at 08:57; Start 02/27/17 at 09:00 Non-Formulary Medication 1 tab DAILY PO ; Start 02/26/17 at 09:00; Stop 02/26/17 at 10:36; Status DC Lactated Ringer's 1,000 ml @ 80 mls/hr [id number] IV Last administered on at 22:21; Start 02/26/17 at 09:45 Cefazolin Sodium 1000 mg/Sodium Chloride 100 ml @ 200 mls/hr Q6H IV Last administered on 02/27/17at 03:03; Start 02/26/17 at 15:00; Stop 02/27/17 at 03:29 ; Status DC Miscellaneous Information (Post-op Orders (for Pharmacy)) STAT ONCE XX ; Start 02/26/17 at 08:30; Stop 02/26/17 at 10:37; Status DC Miscellaneous Information UNSCH PRN XX SEE LABEL COMMENTS; Start 02/26/17 at 08 :30 Acetaminophen/ Hydrocodone Bitart ([place] 7.5-325 Mg) 1 tab Q4H PRN PO PAIN LESS THAN 5 ON SCALE Last administered on 02/27/17at 07:57; Start 02/26/17 at 09: 45 Acetaminophen/ Hydrocodone Bitart ([place] 7.5-325 Mg) 2 tab Q4H PRN PO PAIN SCALE 5 TO 10 Last administered on 02/28/17at 12:50; Start 02/26/17 at 09:45 Acetaminophen (Tylenol) 650 mg Q6H PRN PO FEVER; Start 02/26/17 at 09:45 Tranexamic Acid / Sodium Chloride 100 ml @ 200 mls/hr UNSCH IV ; Start 02/26/17 at 08:30; Stop 02/26/17 at 08:59; Status UNV Multivitamins/ Minerals Therapeutic (Theragran M Tab) 1 tab BID PO Last administered on 02/27/17at 21:37; Start 02/27/17 at 21:00; Stop 04/28/17 at 20:59 Ondansetron HCl (Zofran Inj) 4 mg Q6H PRN IVP NAUSEA OR VOMITING; Start at 09:45 Docusate Sodium (Colace) 100 mg BID PO Last administered on 02/28/17at 08:56; Start 02/27/17 at 21:00 Temazepam (Restoril) 15 mg HS PRN PO SLEEP; Start 02/26/17 at 21:00 Bisacodyl (Dulcolax Supp) 10 mg DAILY PRN RECTAL Severe constipation; Start 02/26/17 at 08:30 Magnesium Hydroxide (Milk Of Magnesia Liq) 30 ml DAILY PRN PO Mild-moderate constipation; Start 02/26/17 at 08:30 Naloxone HCl (Narcan Inj) 0.4 mg UNSCH PRN IV PUSH RESPIRATORY RATE LESS THAN 10; Start 02/26/17 at 08:30 Apixaban (Eliquis) 2.5 mg BID PO ; Start 02/26/17 at 09:00; Stop 02/26/17 at 21:13 ; Status DC Fentanyl Citrate (fentaNYL INJ) 300 mcg STK-MED ONCE .ROUTE ; Start 02/26/17 at 11:46; Stop 02/26/17 at 11:47; Status DC Morphine Sulfate (*morphine INJ PERIprocedure ONLY) 8 mg STK-MED ONCE .ROUTE Last administered on 02/26/17at 11:58; Start 02/26/17 at 11:55; Stop 02/26/17 at 11: 56; Status DC Flumazenil (Romazicon Inj) 0.2 mg Q1M PRN IV PUSH SEE LABEL COMMENTS; Start 02/26/17 at 13:00 Lorazepam (Ativan) 1 mg Q4H PRN PO CIWA 8 - 10; Start 02/26/17 at 13:00 Lorazepam (Ativan Inj) 1 mg Q4H PRN IV PUSH CIWA 8 - 10; Start 02/26/17 at 13:00 Lorazepam (Ativan) 2 mg Q2H PRN PO CIWA 11-14; Start 02/26/17 at 13:00 Lorazepam (Ativan Inj) 2 mg Q2H PRN IV PUSH CIWA 11-14; Start 02/26/17 at 13:00 Lorazepam (Ativan Inj) 2 mg Q1H PRN IV PUSH CIWA 15-20; Start 02/26/17 at 13:00 Lorazepam (Ativan Inj) 2 mg Q15M PRN IV PUSH CIWA > 20; Start 02/26/17 at 13:00 Albuterol/ Ipratropium (Duoneb Neb) 1 ampule Q2HR NEB PRN NEB SOB/WHEEZING; Start 02/26/17 at 13:00 Apixaban (Eliquis) 2.5 mg BID PO Last administered on 02/28/17at 08:56; Start at 23:00 Miscellaneous Information ALL NURSING DEPARTME... UNSCH PRN .XX SEE LABEL COMMENTS; Start 02/26/17 at 11:30; Stop 02/27/17 at 11:29; Status DC Sodium Chloride 1,000 ml @ 999 mls/hr BOLUS ONCE IV Last administered on 02/27at 12:15; Start 02/27/17 at 12:15; Stop 02/27/17 at 13:15; Status DC Nicotine (Habitrol 21 Mg Patch.24 Hr) 1 patch DAILY T-DERMAL ; Start 02/27/17 at 13:15 Miscellaneous Information 1 HS T-DERMAL ; Start 02/27/17 at 21:00 A/P Assessment and Plan Assessment and Plan 71-year-old man with Right hip severe osteoarthritis s/p Right Total Hip Arthroplasty 02/26/17 Management per orthopedic surgery Continue current postop care PT to treat and eval Ivy for DVT prophylaxis TO GO FOR RADIATION TO RIGHT HIP PER ORTHO History of atrial fibrillation Continue with Lopressor Coumadin on hold Currently on Eliquis Hypertension Continue Cozaar 25 mg daily, Lopressor 25 mg twice a day; however will hold d /t low BP Hypotension H/H stable right now Will give 1L NS bolus x 1 now Hold BP meds accordingly BPH Continue with Flomax Alcohol abuse Continue CIWA protocol, rally pack Tobacco abuse Tobacco counselling provided Nicotine patch Elevated blood glucose Check hemoglobin A1c DVT prophylaxis: Eliquis Discharge Planning MEDICALLY CLEARED FOR DC Lorenzo Medina DO Feb 28, 2017 14:04
== END 2017-02-28 17:22 | disposition home health service (06) | DRG 470 ==
LOC: HSDI 06:04 → EDUNIT# 08:30 → N06A 19:01
PROVIDERS: ADMIT Surgery; ATTEND Surgery
PROC: 0SR90JZ Replacement of Right Hip Joint with Synthetic Substitute, Open Approach (ICD-10-PCS; principal; 2017-02-26 08:20)
DX: M16.11 Unilateral primary osteoarthritis, right hip (principal); I95.9 Hypotension, unspecified; I48.91 Unspecified atrial fibrillation; Z96.642 Presence of left artificial hip joint; I10 Essential (primary) hypertension; I25.10 Atherosclerotic heart disease of native coronary artery without angina pectoris; R73.9 Hyperglycemia, unspecified; N40.0 Benign prostatic hyperplasia without lower urinary tract symptoms; F10.10 Alcohol abuse, uncomplicated; F17.200 Nicotine dependence, unspecified, uncomplicated; Z79.01 Long term (current) use of anticoagulants; Z96.659 Presence of unspecified artificial knee joint; Z95.5 Presence of coronary angioplasty implant and graft
CPT/HCPCS: 73501; 80048; 81001; 83036; 85014; 85018; 85610; 85730; 86850; 86900; 86901; 86920; 93005; 94150; C1776; C9290; J0690; J2270; J3010; J3370; J7030; J7050; J7120; L1830